=== PATIENT | male | born 1965 | race Caucasian/White ===

== ENCOUNTER 2016-06-24 04:05 | Emergency (ER) | payer SELFPAY ==
--- NOTE | 2016-06-24 04:54 | ED Physician Chart ---
Chief Complaint/HPI - Patient Information Date Seen:: 06/24/16 Time Seen:: 04:26 Chief Complaint:: SORE ON THE PENIS History of Present Illness:: THIS IS A 50 YEAR OLD MALE WHO IS ACTIVE SEXUALLY IS CONCERNED ABOUT A SORE ON HIS PENIS. THE LAST SEXUAL ENCOUNTER WAS FOUR DAYS AGO. HE DENIES A PENILE DISCHARGE AND HEMATURIA. HE DENIES HAVING ANY PREVIOUS SEX DISEASES. HE DENIES ALL OTHER SYMPTOMS. Allergies:: Allergies Allergy/AdvReac Type Severity Reaction Status Date / Time No Known Allergies Allergy Verified 11/28/15 09:09 Vitals:: Vital Signs - 8 hr 06/24/16 04:20 Temp 98.7 F HR 99 RR 19 BP 129/91 O2 Sat % 97 Historian:: Patient Review:: Nurse's Note Reviewed Review of Systems - Review of Systems General/Constitutional: No fever, No chills, No weight loss, No weakness, No diaphoresis, No edema, No loss of appetite Skin: No skin lesions, No rash, No bruising Head: No headache, No light-headedness Eyes: No loss of vision, No pain, No diplopia ENT: No earache, No nasal drainage, No sore throat, No tinnitus Neck: No neck pain, No swelling, No thyromegaly, No stiffness, No mass noted Cardio Vascular: No chest pain, No palpitations, No PND, No orthopnea, No edema Pulmonary: No SOB, No cough, No sputum, No wheezing GI: No nausea, No vomiting, No diarrhea, No pain, No melena, No hematochezia, No constipation, No hematemesis G/U: No dysuria, No frequency, No hematuria, Other (SORE ON THE PENIS) Musculoskeletal: No bone or joint pain, No back pain, No muscle pain Endocrine: No polyuria, No polydipsia Psychiatric: No prior psych history, No depression, No anxiety, No suicidal ideation Hematopoietic: No bruising, No lymphadenopathy Allergic/Immuno: No urticaria, No angioedema Neurological: No syncope, No focal symptoms, No weakness, No paresthesia, No headache, No seizure, No dizziness, No confusion, No vertigo Past Medical History - Past Medical History Obtainable: Yes Past Medical History: No significant medical hx Family History: None Social History: Non Smoker, No Alcohol, No Drug Use Surgical History: other (LEFT ANKLE) Family Medical History - Family Member Mother History Unknown: Yes Physical Exam - Physical Examination General/Constitutional: Awake, Well-developed, well-nourished, Alert, No distress, GCS 15, Non-toxic appearing, Ambulatory Head: Atraumatic Eyes: Lids, conjuctiva normal, PERRL, EOMI Skin: Nl inspection, No rash, No skin lesions, No ecchymosis, Well hydrated, No lymphadenopathy ENMT: External ears, nose nl, Nasal exam nl, Lips, teeth, gums nl Neck: Nontender, Full ROM w/o pain, No JVD, No nuchal rigidity, No bruit, No mass, No stridor Respiratory: Nl effort/Exclusion, Clear to Auscultation, No Wheeze/Rhonchi/Rales Cardio Vascular: RRR, No murmur, gallop, rubs, NL S1 S2 GI: No tenderness/rebounding/guarding, No organomegaly, No hernia, Normal BS's, Nondistended, No mass/bruits, No McBurney tenderness : No CVA tenderness, NL external genitalia, No discharge Other comments:: THERE IS AN ULCER LESION ON THE SHAFT OF THE PENIS AND THERE IS NO DISCHARGE. Extremities: No tenderness or effusion, Full ROM, normal strength in all extremities, No edema, Normal digits & nails Neuro/Psych: Alert/oriented, DTR's symmetric, Normal sensory exam, Normal motor strength, Judgement/insight normal, Mood normal, Normal gait, No focal deficits Misc: normal gait, Normal back, No paraspinal tenderness ED Septic Shock - . Is Septic Shock (SBP<90, OR Lactate>4 mmol\L) present?: No - <6hrs of presentation: Vital Signs: Vital Signs - 8 hr 06/24/16 04:20 Temp 98.7 F HR 99 RR 19 BP 129/91 O2 Sat % 97 Reassessment (Disposition) - Reassessment Reassessment Condition:: Unchanged - Diagnosis Diagnosis:: CANKER SORE ON PENIS SHAFT - Aftercare/Follow up Instructions Aftercare/Follow-Up Instructions:: Counseled pt regarding lab results/diagnosis & need follow up, Refer to Discharge Instructions, Counseled pt & family regarding lab results/diagnosis & need follow up - Patient Disposition Discharge/Transfer:: Home Condition at Disposition:: Unchanged ED Discharge Plan - Patient Disposition Admit/Discharge/Transfer: PT DISCHARGED HOME Condition at Disposition: Unchanged
== END 2016-06-24 05:00 | disposition home or self-care (01) ==
LOC: ER 04:05
DX: N48.89 Other specified disorders of penis (principal)
CPT/HCPCS: 99283; 96372; J0696; Z7502

== ENCOUNTER 2017-10-17 15:03 | Emergency (ER) | payer MEDICAID ==
--- NOTE | 2017-10-17 15:45 | ED Physician Chart ---
ED Chief Complaint/HPI - Patient Information Date Seen:: 10/17/17 Time Seen:: 15:39 Chief Complaint:: STINGING PAIN IN RT SIDE OF NECK THIS AM History of Present Illness:: PATIENT WAS SLEEPING IN A TENT IN THE [place] ON WHEN HE FELT A STINGING PAIN IN THE RIGHT SIDE OF HIS NECK. HE DID NOT SEE ANY INSECTS OR OTHER CRITTERS THAT MAY HAVE BEEN THE SOURCE. HE POURED HYDROGEN PEROXIDE ON IT AND THE PAIN BECAME WORSE. CURRENTLY HE RATES IT A 8/10 IN SEVERITY. PT DIDN'T SEE ANY UNUSUAL SOURCES OF HIS PAIN. NO ASSOCIATED NAUSEA, VOMITING OR DIAPHORESIS.THE PT SAYS HIS NECK HURTS AND IT LOOKS LIKE HE HAD A VESICULAR PATCH OF SKIN. HE DIDN'T SEE ANY FANG SILVA. HE DOESN'T SEE ANY SWELLING. PT USES Allergies:: Allergies Allergy/AdvReac Type Severity Reaction Status Date / Time No Known Allergies Allergy Verified 11/28/15 09:09 Historian:: Patient Review:: Nurse's Note Reviewed, No other information ED Review of Systems - Review of Systems General/Constitutional: No fever, No chills, No weakness, No diaphoresis, No edema, No loss of appetite Skin: Skin lesions, Rash, No bruising Head: No headache, No light-headedness Eyes: No loss of vision, No diplopia ENT: No earache, No nasal drainage, Sore throat, No tinnitus Neck: Neck pain, No swelling, No thyromegaly, No stiffness, No mass noted Cardio Vascular: No chest pain, No palpitations, No orthopnea, No edema Pulmonary: No SOB, No cough, No wheezing GI: No nausea, No vomiting, No diarrhea, No pain, No melena, No hematochezia, No constipation, No hematemesis G/U: No dysuria, No frequency, No 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 Musculoskeletal: No bone or joint pain, No back pain, No muscle pain Endocrine: No polyuria, No polydipsia Psychiatric: No prior psych history, No anxiety, No suicidal ideation, No auditory hallucination, No visual hallucination Hematopoietic: No bruising, No lymphadenopathy Allergic/Immuno: No urticaria, Angioedema, No angioedema Neurological: No syncope, No focal symptoms, No weakness, No headache, No seizure, No dizziness, No confusion, No vertigo ED Past Medical History - Past Medical History Past Medical History: No significant medical hx Social History: Non Smoker, No Alcohol, Illicit Drug Use, Single, Lives Alone Employment:: [employer] Surgical History: other (PRIOR ANKLE SURG) Family Medical History - Family Member Mother History Unknown: Yes ED Physical Exam - Physical Examination General/Constitutional: Awake, Well-developed, well-nourished, Alert, Non-toxic appearing, Ambulatory Other Gen/Cons comments:: NILD T0 MODERATE DIASTRESS DUE TO HIS C/OPAIN Pt. PT LOUD AND DEMANDING. UNKEPG. Head: Atraumatic Eyes: Lids, conjuctiva normal, PERRL, EOMI Skin: No rash, Well hydrated Other Skin comments:: MILD SKIN BURN. Respiratory: Nl effort/Exclusion, Clear to Auscultation, No Wheeze/Rhonchi/Rales Cardio Vascular: RRR, No murmur, gallop, rubs, NL S1 S2 Other Cardio Vascular comments:: GOOD PULSES IN ALL 4 EXTREMITIES ED Assessment - Assessment General Assessment: MDM DDX SUDDEN ON SET STING IN NECK: NOT BEE STING BASED ON NO STINGER. NOT RATTLESNAKE BITE BASED ON LACK OF SAYING IMPRINTS NOT NEEDLE STICK BASED ON THE PATIENT'S HISTORY. Excludes all billable procedures: No This condition life threatening/high prob of deterioration: No ED Septic Shock - . Is Septic Shock (SBP<90, OR Lactate>4 mmol\L) present?: No ED Reassessment (Disposition) - Reassessment Reassessment Condition:: Improved - Diagnosis Diagnosis:: PROBABLE INSECT OR SPIDER BITE ED Discharge Plan - Patient Disposition Admit/Discharge/Transfer: PT DISCHARGED HOME Condition at Disposition: Stable Instructions: Insect Bite, [id number] Additional Instructions: Pls follow up with PCP in 1-2 days. Return to ER if symptoms worsen.
[2017-10-17 16:51] LABS: % BASOPHILS 0.6 % (0.0-2.0); % EOSINOPHILS 3.6 % (0.0-5.0); % LYMPHOCYTES 25.1 % (20.0-50.0); % MONOCYTES 7.9 % (2.0-10.0); % NEUTROPHILS 62.8 % (40.0-80.0); EOSINOPHILE ABSOLUTE 0.2 Th/cmm (0.1-0.4); HEMATOCRIT 41.4 % (41.0-60); HEMOGLOBIN 14.1 gm/dL (12-16); LYMPHOCYTE ABSOLUTE 1.7 Th/cmm (1.5-3.0); MEAN CELL VOLUME 85.9 fl (80-99); MEAN CORPUSCULAR HEMOGLOBIN 29.1 pg (26.0-30.0); MEAN CORPUSCULAR HGB CONC 33.9 pg (28.0-36.0); MEAN PLATELET VOLUME 7.8 fl; MONOCYTE ABSOLUTE 0.5 Th/cmm (0.3-1.0); NEUTROPHILE ABSOLUTE 4.5 Th/cmm (1.8-8.0); PLATELET COUNT 217 Th/cmm (150-400); RED BLOOD COUNT 4.82 Mil/cmm (4.30-5.70); RED CELL DISTRIBUTION WIDTH 12.5 % (11.5-20.0); WHITE BLOOD COUNT 6.9 Th/cmm (4.8-10.8)
[2017-10-17 17:17] LABS: ALB/GLOB RATIO 1.7 (1.0-1.8); ALBUMIN 4.3 gm/dL (4.2-5.5); ALKALINE PHOSPHATASE 80 U/L (34-104); ANION GAP 8.2 (7.0-16.0); BILIRUBIN,TOTAL 0.8 mg/dL (0.3-1.0); BUN - UREA NITROGEN 24 mg/dL (7-25); CALCIUM SERUM 9.7 mg/dL (8.6-10.3); CARBON DIOXIDE 29.6 mEq/L (21.0-31.0); CHLORIDE 105 mEq/L (98-107); CREATININE - SERUM 1.5 mg/dL (0.7-1.3); GFR AFRICAN-AMERICAN > 60.0 ml/min (>90); GFR NON AFRICAN-AMERICAN 52.9 ml/min; GLUCOSE 109 mg/dL (70-105); POTASSIUM SERUM 4.8 mEq/L (3.5-5.1); SGOT 27 U/L (13-39); SGPT/ALT 30 U/L (7-52); SODIUM SERUM 138 mEq/L (136-145); TOTAL PROTEIN,SERUM 6.8 gm/dL (6.0-8.3)
== END 2017-10-17 17:30 | disposition home or self-care (01) ==
LOC: ER 15:03
DX: M54.2 Cervicalgia (principal)
CPT/HCPCS: 36415-UA; 80053-TC; 85025-TC; Z7502

== ENCOUNTER 2018-04-02 00:58 | Inpatient (IN) | payer SELFPAY ==
[2018-04-02] MEDS ORDERED: Albuterol/Ipratropium Neb 3 ML AERS HHN ONE ×3 (01:38→11:18)
--- NOTE | 2018-04-02 01:43 | ED Physician Chart ---
ED Chief Complaint/HPI - Patient Information Date Seen:: 04/02/18 Time Seen:: 01:30 Chief Complaint:: shortness of breath History of Present Illness:: Patient's had shortness of breath the last 2 weeks increased with mild exertion in the supine position. No recent cough. No chest pain. 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 Patient has not seen a physician in several years. Allergies:: Allergies Allergy/AdvReac Type Severity Reaction Status Date / Time No Known Allergies Allergy Verified 10/17/17 15:43 Historian:: Patient Review:: Nurse's Note Reviewed ED Review of Systems - Review of Systems General/Constitutional: No fever, No chills Skin: No skin lesions Head: No headache Eyes: No loss of vision ENT: No earache Neck: No neck pain, No swelling Cardio Vascular: No chest pain Pulmonary: SOB GI: No nausea, No vomiting, No diarrhea G/U: No dysuria Musculoskeletal: No bone or joint pain Endocrine: No polyuria Psychiatric: No prior psych history, No depression, No anxiety Hematopoietic: No bruising Allergic/Immuno: No urticaria Neurological: No syncope, No focal symptoms ED Past Medical History - Past Medical History Past Medical History: No significant medical hx Family History: None Social History: Smoker, No Alcohol, Other (smokes one pack of cigarettes a day) Surgical History: other (left ankle) Psychiatricy History: None Medication: None Family Medical History - Family Member Mother History Unknown: Yes ED Physical Exam - Physical Examination General/Constitutional: Well-developed, well-nourished, Alert Other Gen/Cons comments:: Mildly tachypneic Head: Atraumatic Eyes: Lids, conjuctiva normal, PERRL Skin: Nl inspection, No rash ENMT: External ears, nose nl, TM canals nl, Nasal exam nl Neck: No nuchal rigidity Other Respiratory comments:: Left sided expiratory wheezing and bibasilar rales Cardio Vascular: RRR, No murmur, gallop, rubs, NL S1 S2 GI: No tenderness/rebounding/guarding, No organomegaly, No hernia, Normal BS's : No CVA tenderness Extremities: Normal digits & nails Neuro/Psych: No focal deficits Misc: Normal back ED Labs/Radiology/EKG Results - Lab Results Results: Abnormal Lab Results 04/02/18 04/02/1804/02/18 01:50 01:50 01:50 WBC 9.5 RBC 4.95 Hgb 14.6 Hct 43.5 MCV 87.9 MCH 29.4 MCHC Differential 33.4 RDW 12.1 Plt Count 211 MPV 8.3 Neutrophils % 70.8 Lymphocytes % 19.6 L Monocytes % 7.5 Eosinophils % 1.8 Basophils % 0.3 Sodium 138 Potassium 4.2 Chloride 107 Carbon Dioxide 23.5 Anion Gap 11.7 BUN 23 Creatinine 1.3 Est GFR ( Amer) > 60.0 Est GFR (Non-Af Amer) > 60.0 BUN/Creatinine Ratio 17.7 Glucose 102 Calcium 8.9 Magnesium 2.1 Troponin I B-Natriuretic Peptide 759.0 H 04/02/18 01:50 WBC RBC Hgb Hct MCV MCH MCHC Differential RDW Plt Count MPV Neutrophils % Lymphocytes % Monocytes % Eosinophils % Basophils % Sodium Potassium Chloride Carbon Dioxide Anion Gap BUN Creatinine Est GFR ( Amer) Est GFR (Non-Af Amer) BUN/Creatinine Ratio Glucose Calcium Magnesium Troponin I 0.07 H* B-Natriuretic Peptide - Radiology Results Results: Chest x-ray showed marked cardiomegaly - EKG Interpretations Rate & Rhythm: sinus tachycardia; ventricular trigeminy; heart rate 111 [place]: borderline left axis deviation Comments:: Left ventricular hypertrophy ED Septic Shock - . Is Septic Shock (SBP<90, OR Lactate>4 mmol\L) present?: No ED Reassessment (Disposition) - Reassessment Reassessment:: Patient felt improved after the breathing treatment with albuterol and Atrovent Reassessment Condition:: Unchanged - Diagnosis Diagnosis:: Cardiomegaly; probable congestive heart failure; nicotine crystal meth use - Patient Disposition Admitted to:: Telemetry Spoke to:: Surendra Mcdonald Admitting Medical Physician:: Surendra Mcdonald Condition at Disposition:: Stable, Improved
[2018-04-02 01:59] LABS: % BASOPHILS 0.3 % (0.0-2.0); % EOSINOPHILS 1.8 % (0.0-5.0); % LYMPHOCYTES 19.6 % (20.0-50.0); % MONOCYTES 7.5 % (2.0-10.0); % NEUTROPHILS 70.8 % (40.0-80.0); EOSINOPHILE ABSOLUTE 0.2 Th/cmm (0.1-0.4); HEMATOCRIT 43.5 % (41.0-60); HEMOGLOBIN 14.6 gm/dL (12-16); LYMPHOCYTE ABSOLUTE 1.9 Th/cmm (1.5-3.0); MEAN CELL VOLUME 87.9 fl (80-99); MEAN CORPUSCULAR HEMOGLOBIN 29.4 pg (26.0-30.0); MEAN CORPUSCULAR HGB CONC 33.4 pg (28.0-36.0); MEAN PLATELET VOLUME 8.3 fl; MONOCYTE ABSOLUTE 0.7 Th/cmm (0.3-1.0); NEUTROPHILE ABSOLUTE 6.7 Th/cmm (1.8-8.0); PLATELET COUNT 211 Th/cmm (150-400); RED BLOOD COUNT 4.95 Mil/cmm (4.30-5.70); RED CELL DISTRIBUTION WIDTH 12.1 % (11.5-20.0); WHITE BLOOD COUNT 9.5 Th/cmm (4.8-10.8)
[2018-04-02 02:13] LABS: ANION GAP 11.7 (7.0-16.0); BUN - UREA NITROGEN 23 mg/dL (7-25); CALCIUM SERUM 8.9 mg/dL (8.6-10.3); CARBON DIOXIDE 23.5 mEq/L (21.0-31.0); CHLORIDE 107 mEq/L (98-107); CREATININE - SERUM 1.3 mg/dL (0.7-1.3); GFR AFRICAN-AMERICAN > 60.0 ml/min (>90); GFR NON AFRICAN-AMERICAN > 60.0 ml/min; GLUCOSE 102 mg/dL (70-105); MAGNESIUM 2.1 mg/dL (1.9-2.7); POTASSIUM SERUM 4.2 mEq/L (3.5-5.1); SODIUM SERUM 138 mEq/L (136-145)
[2018-04-02] MEDS ORDERED: Morphine Sulfate 4 mg/mL 1mL Syr IVP STA (04:47)
[2018-04-02] MEDS ORDERED: Morphine Sulfate 4 mg/mL 1mL Syr ONE (04:50)
--- NOTE | 2018-04-02 08:40 | History and Physical ---
History of Present Illness - HPI Chief Complaint: SOB HPI: 52 y/o male who presents to [facility] ER for increasing shortness of breath for the past 2 weeks with mild exertion. Patient denies recent coughing, Denies chest pain. He has a history of drug abuse(crystal meth) for the past 20 years. Patient has no previous medical history. Initial labwork revealed the following... WBC 9.5 H/H 14.6/43.5 plat 211k Na 138 K 4.2 Bun/Cr 23/1.3 glu 102 BNP elevated 759 trop I 0.07 Chest Xray revealed cardiomegaly. Patient was subsequently admitted for further evaluation and treatment. 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 Hx GI: Report: No Pertinent Hx Psych: Report: No Pertinent Hx Musculoskeletal: Report: No Pertinent Hx Rheumatologic: Report: No pertinent Hx Infectious Disease: Report: No Pertinent Hx Renal/: Report: No Pertinent Hx Endocrine: Report: No Pertinent Hx Dermatology: Report: No Pertinent Hx - Past Surgical History Past Surgical History: No pertinent Hx Family Medical History - Family Member Mother History Unknown: Yes Social History Smoke: No Alcohol: None Drugs: Crystal Meth Lives: Alone - Medications Home Medications: Home Medication Medication Instructions Recorded Type NK [No Home Meds] 10/17/17 History - Allergies Allergies/Adverse Reactions: Allergies Allergy/AdvReac Type Severity Reaction Status Date / Time No Known Allergies Allergy Verified 10/17/17 15:43 Review of Systems - Review of Systems Constitutional: Report: No Significant Eyes: Report: No Significant ENT: Report: No Significant Respiratory: Report: SOB with Excertion. Denies: Cough Cardiovascular: Denies: Chest Pain Gastrointestinal: Report: No Significant Genitourinary: Report: No Significant Musculoskeletal: Report: No Significant Skin: Report: No Significant Neurological: Report: No Significant Physical Exam - Physical Exam HEENT: Report: Ears Nose Throat within normal limits Neck: Report: Within normal limits Cardiovascular Systems: Report: +s1/s2 noted, Regular, Rate and Rhythm Respiratory: Report: Breath Sounds are within normal limits Abdomen: Report: Non-tender to palpation, Tender to palpation Back: Report: Inspection of back is within normal limits. Extremities: Report: Non-tender to palpation. Skin: Report: Color of skin is within normal limits Neuro/Psych: Report: Mood affect is within normal limits - Lab Results All Lab Results last 24 hours: Laboratory Results - last 24 hr 04/02/18 04/02/18 04/02/18 01:50 01:50 01:50 WBC 9.5 RBC 4.95 Hgb 14.6 Hct 43.5 MCV 87.9 MCH 29.4 MCHC Differential 33.4 RDW 12.1 Plt Count 211 MPV 8.3 Neutrophils % 70.8 Lymphocytes % 19.6 L Monocytes % 7.5 Eosinophils % 1.8 Basophils % 0.3 Sodium 138 Potassium 4.2 Chloride 107 Carbon Dioxide 23.5 Anion Gap 11.7 BUN 23 Creatinine 1.3 Est GFR ( Amer) > 60.0 Est GFR (Non-Af Amer) > 60.0 BUN/Creatinine Ratio 17.7 Glucose 102 Calcium 8.9 Magnesium 2.1 Troponin I B-Natriuretic Peptide 759.0 H 04/02/18 01:50 WBC RBC Hgb Hct MCV MCH MCHC Differential RDW Plt Count MPV Neutrophils % Lymphocytes % Monocytes % Eosinophils % Basophils % Sodium Potassium Chloride Carbon Dioxide Anion Gap BUN Creatinine Est GFR ( Amer) Est GFR (Non-Af Amer) BUN/Creatinine Ratio Glucose Calcium Magnesium Troponin I 0.07 H* B-Natriuretic Peptide - Assessment Assessment: SOB r/o CHF with elevated BNP elevated trop hx crystal meth Cardiomegaly on chest xray - Plan Plan: admit to telemetry repeat trop q8 repeat bnp tomorrow TSH,lipid profile cardio consult pulmonary consult repeat chest xray tomorrow
--- NOTE | 2018-04-02 08:51 | Diagnostic Imaging Report ---
CHEST X-RAY: AP view INDICATION: Shortness of breath COMPARISON: None FINDINGS: Mild increased interstitial lung markings are noted. There wall thickening infiltrate right perihilar region cannot be excluded. No focal consolidation or effusions. Cardiomegaly is noted. Osseous structures are intact. IMPRESSION: Mild increased interstitial lung markings. A marginal degree of congestion cannot be excluded. Developing right perihilar infiltrates can also not be excluded. Clinical correlation is recommended Cardiomegaly.
[2018-04-02 10:14] LABS: CHOLESTEROL 109 mg/dL (<200); HDL -HIGH DENSITY LIPOPROTEIN 31 mg/dL (23-92); TRIGLYCERIDES 97 mg/dL (<150)
[2018-04-02] MEDS ORDERED: Aspirin 81mg Chewable Tab PO SCH (11:00)
[2018-04-02] MEDS ORDERED: Albuterol Nebulizer 2.5mg/3mL HHN PRN (11:15)
[2018-04-02] MEDS ORDERED: Albuterol/Ipratropium Neb 3 ML AERS HHN SCH ×2 (11:15→11:45)
--- NOTE | 2018-04-02 23:17 | Consultation ---
DATE OF CONSULTATION: 04/02/[address] Surendra Mcdonald. HISTORY OF PRESENT ILLNESS: This is a 52-year-old male patient who has been complaining of shortness of breath of period of 2 days. No history of PND, orthopnea. The patient has a known history of substance abuse with methamphetamine. PHYSICAL EXAMINATION: VITAL SIGNS: Blood pressure 120/80, pulse 100, and respirations 28. HEAD: Normocephalic. No lumps or bumps. EYES: Pupils equal, reactive to light. Fundi show AV nicking, sclerae white, conjunctivae pink. NECK: Carotid 2+. Normal upstroke. JVD flat. Thyroid not palpable. Lymph nodes not palpable. CHEST: Shows increased AP diameter. No kyphosis, scoliosis. LUNGS: Bilateral rales. Decreased breath sounds both the bases. HEART: PMI sixth intercostal space with lateral to midclavicular line. S1, S2, S3, S4, soft systolic murmur. ABDOMEN: Soft. Liver and spleen not palpable. No organomegaly. Bowel sounds active. NEUROLOGIC: Unremarkable. EXTREMITIES: Peripheral pulses 2+. No pedal edema. CLINICAL IMPRESSION: 1. Congestive heart failure, most likely systolic dysfunction. 2. Methamphetamine. PLAN: At the present time, we will give Lasix. Get echocardiogram and give one dose of Xanax for anxiety. JOB# [id number]
--- NOTE | 2018-04-03 15:21 | Consultation ---
DATE OF CONSULTATION: 04/02/2018 REFERRING PHYSICIAN: Dr. Mcdonald. Thank you very much for this consultation. HISTORY OF PRESENT ILLNESS: This is a 52-year-old male who has been complaining of increasing shortness of breath and congestion for the last couple of days. The patient apparently is in his sixth year of smoking, methamphetamine use, remote history of alcohol use. The patient was found to have a very low ejection fraction, cardiomyopathy. He has responded to the diuresis and nebulized treatment. He is feeling much better. PAST MEDICAL HISTORY: As above. SOCIAL HISTORY: As above. PHYSICAL EXAMINATION: GENERAL: The patient is awake, alert, feeling much better, not in acute distress. VITAL SIGNS: Temperature 99.2, pulse 130, respirations 16, blood pressure 104/71, saturation 98%. HEENT: Atraumatic, normocephalic. Pupils equal and reactive to light and accommodation. Ears, nose and throat normal. RESPIRATORY: Chest: There are good breath sounds bilaterally. No wheezing or crackles. HEART: Regular rate and rhythm. ABDOMEN: Soft. EXTREMITIES: No edema. LABORATORY AND DIAGNOSTIC DATA: BNP 759. Troponin 0.07. Chest x-ray: No acute infiltrate. IMPRESSION: This is a 52-year-old male with: 1. Congestive heart failure, cardiomyopathy. 2. Possible underlying chronic obstructive pulmonary disease, many years of smoking. PLAN: 1. Continue diuresis. 2. Nebulizer treatment. 3. Discharge planning per Cardiology. 4. The patient was advised against smoking and drug usage. Thank you very much. I will follow the patient with you. [facility]# [id number]
== END 2018-04-02 18:40 | disposition left against medical advice (07) | DRG 293 ==
LOC: ER 00:58 → TELE 04:06
PROVIDERS: ADMIT Family Medicine; ATTEND Family Medicine
DX: I50.9 Heart failure, unspecified (principal); I42.9 Cardiomyopathy, unspecified; F17.210 Nicotine dependence, cigarettes, uncomplicated; F15.10 Other stimulant abuse, uncomplicated; I51.7 Cardiomegaly; Z53.21 Procedure and treatment not carried out due to patient leaving prior to being seen by health care provider; J44.9 Chronic obstructive pulmonary disease, unspecified; F41.9 Anxiety disorder, unspecified
CPT/HCPCS: 36415-UA; 71045-TC; 80048-TC; 80061-TC; 83735-TC; 83880-TC; 84443-TC; 84484-TC; 85025-TC; 93005; 94640; 94760; J1940; Z7610

== ENCOUNTER 2018-11-06 12:34 | Inpatient (IN) | payer MEDICAID ==
--- NOTE | 2018-11-06 13:15 | ED Physician Chart ---
ED Chief Complaint/HPI - Patient Information Date Seen:: 11/06/18 Time Seen:: 13:09 Chief Complaint:: back pain History of Present Illness:: this is a 52 yo male is concerned about his left lower back pain. the patient denies recent lifting and trauma. he denies renal stones but admits to heart failure. he smokes and uses methamphetamine. Allergies:: Allergies Allergy/AdvReac Type Severity Reaction Status Date / Time No Known Allergies Allergy Verified 10/17/17 15:43 Historian:: Patient Review:: Nurse's Note Reviewed, Old Chart Reviewed ED Review of Systems - Review of Systems General/Constitutional: No fever, No chills, No weight loss, No weakness, No diaphoresis, No edema, No loss of appetite Skin: No skin lesions, No rash, No bruising Head: No headache, No light-headedness Eyes: No loss of vision, No pain, No diplopia ENT: No earache, No nasal drainage, No sore throat, No tinnitus Neck: No neck pain, No swelling, No thyromegaly, No stiffness, No mass noted Cardio Vascular: No chest pain, No palpitations, No PND, No orthopnea, No edema Pulmonary: No SOB, No cough, No sputum, No wheezing GI: No nausea, No vomiting, No diarrhea, No pain, No melena, No hematochezia, No constipation, No hematemesis G/U: No dysuria, No frequency, No hematuria Musculoskeletal: No bone or joint pain, Back pain, No muscle pain Endocrine: No polyuria, No polydipsia Psychiatric: No prior psych history, No depression, No anxiety, No suicidal ideation Hematopoietic: No bruising, No lymphadenopathy Allergic/Immuno: No urticaria, No angioedema Neurological: No syncope, No focal symptoms, No weakness, No paresthesia, No headache, No seizure, No dizziness, No confusion, No vertigo ED Past Medical History - Past Medical History Obtainable: Yes Past Medical History: CHF Family History: None Social History: Smoker, No Alcohol, Illicit Drug Use, Surgical History: other (left ankle) Psychiatricy History: None Medication: Reviewed Family Medical History - Family Member Mother History Unknown: Yes Ethnicity: Non- Living Status: Hx Family Cancer: No Hx Family Coronary Artery Disease: No Hx Family Congestive Heart Failure: No Hx Family Hypertension: No Hx Family Stroke: Yes Hx Family Diabetes: No Hx Family Seizures: No Hx Family Dementia: No Hx Family AIDS: No Hx Family HIV: No Hx Family COPD: Yes Hx Family Hepatitis: No Hx Family Psychiatric Problems: No Hx Family Tuberculosis: No Father Ethnicity: Non- Living Status: Still Living Hx Family Cancer: No Hx Family Coronary Artery Disease: No Hx Family Congestive Heart Failure: No Hx Family Hypertension: No Hx Family Stroke: No Hx Family Diabetes: No Hx Family Seizures: No Hx Family Dementia: No Hx Family AIDS: No Hx Family HIV: No Hx Family COPD: No Hx Family Hepatitis: No Hx Family Psychiatric Problems: No Hx Family Tuberculosis: No Brother History Unknown: Yes Ethnicity: Non- Living Status: Still Living Hx Family Hepatitis: Yes ED Physical Exam - Physical Examination General/Constitutional: Awake, Well-developed, well-nourished, Alert, No distress, GCS 15, Non-toxic appearing, Ambulatory Head: Atraumatic Eyes: Lids, conjuctiva normal, PERRL, EOMI Skin: Nl inspection, No rash, No skin lesions, No ecchymosis, Well hydrated, No lymphadenopathy ENMT: External ears, nose nl, Nasal exam nl, Lips, teeth, gums nl Neck: Nontender, Full ROM w/o pain, No JVD, No nuchal rigidity, No bruit, No mass, No stridor Respiratory: Nl effort/Exclusion, Clear to Auscultation, No Wheeze/Rhonchi/Rales Cardio Vascular: RRR, No murmur, gallop, rubs, NL S1 S2 GI: No tenderness/rebounding/guarding, No organomegaly, No hernia, Normal BS's, Nondistended, No mass/bruits, No McBurney tenderness : No CVA tenderness Extremities: No tenderness or effusion, Full ROM, normal strength in all extremities, No edema, Normal digits & nails Neuro/Psych: Alert/oriented, DTR's symmetric, Normal sensory exam, Normal motor strength, Judgement/insight normal, Mood normal, Normal gait, No focal deficits Misc: Normal back, No paraspinal tenderness (left side lower back tenderness) ED Labs/Radiology/EKG Results - Lab Results Results: Abnormal Lab Results 11/06/18 11/06/18 11/06/18 13:10 13:10 13:10 WBC RBC Hgb Hct MCV MCH MCHC Differential RDW Plt Count MPV Add Manual Diff Neutrophils (Manual) Lymphocytes Monocytes Eosinophils PT 11.4 INR 1.11 PTT (Actin FS) 32.6 Sodium 134 L Potassium 3.9 Chloride 101 Carbon Dioxide 25.9 Anion Gap 11.0 BUN 20 Creatinine 1.2 Est GFR ( Amer) > 60.0 Est GFR (Non-Af Amer) > 60.0 BUN/Creatinine Ratio 16.7 Glucose 94 Calcium 9.1 Total Bilirubin 0.5 AST 16 ALT 13 Alkaline Phosphatase 70 Troponin I B-Natriuretic Peptide Total Protein 6.9 Albumin 4.1 L Globulin 2.8 Albumin/Globulin Ratio 1.5 Triglycerides 57 Cholesterol 158 LDL Cholesterol Direct 119 HDL Cholesterol 34 Urine Source Urine Color Urine Clarity Urine pH Ur Specific [place] Urine Protein Urine Glucose (UA) Urine Ketones Urine Blood Urine Nitrate Urine Bilirubin Urine Urobilinogen Ur Leukocyte Esterase Urine RBC Urine WBC Ur Epithelial Cells Urine Bacteria Fine Granular Casts Urine Mucus Urine Opiates Screen Urine Methadone Screen Ur Barbiturates Screen Ur Tricyclics Screen Ur Phencyclidine Scrn Amphetamines Screen U Methamphetamines Scrn U Benzodiazepines Scrn U Cocaine Metab Screen U Cannabinoids Screen 11/06/18 11/06/18 11/06/18 13:10 13:10 13:10 WBC 5.3 RBC 5.22 Hgb 15.4 Hct 47.3 MCV 90.7 MCH 29.6 MCHC Differential 32.6 RDW 11.6 Plt Count 201 MPV 7.7 Add Manual Diff YES Neutrophils (Manual) 38 L Lymphocytes 40 Monocytes 16 H Eosinophils 6 H PT INR PTT (Actin FS) Sodium Potassium Chloride Carbon Dioxide Anion Gap BUN Creatinine Est GFR ( Amer) Est GFR (Non-Af Amer) BUN/Creatinine Ratio Glucose Calcium Total Bilirubin AST ALT Alkaline Phosphatase Troponin I 0.08 H* B-Natriuretic Peptide 463.0 H Total Protein Albumin Globulin Albumin/Globulin Ratio Triglycerides Cholesterol LDL Cholesterol Direct HDL Cholesterol Urine Source Urine Color Urine Clarity Urine pH Ur Specific [place] Urine Protein Urine Glucose (UA) Urine Ketones Urine Blood Urine Nitrate Urine Bilirubin Urine Urobilinogen Ur Leukocyte Esterase Urine RBC Urine WBC Ur Epithelial Cells Urine Bacteria Fine Granular Casts Urine Mucus Urine Opiates Screen Urine Methadone Screen Ur Barbiturates Screen Ur Tricyclics Screen Ur Phencyclidine Scrn Amphetamines Screen U Methamphetamines Scrn U Benzodiazepines Scrn U Cocaine Metab Screen U Cannabinoids Screen 11/06/18 11/06/18 14:00 14:00 WBC RBC Hgb Hct MCV MCH MCHC Differential RDW Plt Count MPV Add Manual Diff Neutrophils (Manual) Lymphocytes Monocytes Eosinophils PT INR PTT (Actin FS) Sodium Potassium Chloride Carbon Dioxide Anion Gap BUN Creatinine Est GFR ( Amer) Est GFR (Non-Af Amer) BUN/Creatinine Ratio Glucose Calcium Total Bilirubin AST ALT Alkaline Phosphatase Troponin I B-Natriuretic Peptide Total Protein Albumin Globulin Albumin/Globulin Ratio Triglycerides Cholesterol LDL Cholesterol Direct HDL Cholesterol Urine Source [place] Urine Color YELLOW Urine Clarity CLEAR Urine pH 5.5 Ur Specific [place] 1.025 Urine Protein NEGATIVE Urine Glucose (UA) NEGATIVE Urine Ketones NEGATIVE Urine Blood NEGATIVE Urine Nitrate NEGATIVE Urine Bilirubin NEGATIVE Urine Urobilinogen 0.2 Ur Leukocyte Esterase NEGATIVE Urine RBC 0-2 H Urine WBC 2-5 Ur Epithelial Cells OCCASIONAL Urine Bacteria FEW Fine Granular Casts 0-2 H Urine Mucus FEW Urine Opiates Screen NEGATIVE Urine Methadone Screen NEGATIVE Ur Barbiturates Screen NEGATIVE Ur Tricyclics Screen NEGATIVE Ur Phencyclidine Scrn NEGATIVE Amphetamines Screen POSITIVE H U Methamphetamines Scrn POSITIVE H U Benzodiazepines Scrn NEGATIVE U Cocaine Metab Screen NEGATIVE U Cannabinoids Screen POSITIVE H - Radiology Results Results: chest x-ray= cm lumboscaral spine = spondylolithesis L5 ON S1 - EKG Interpretations EKG Time:: 13:09 ([address]) Rate & Rhythm: rate = 86, sinus [place]: left ED Assessment - Assessment General Assessment: back pain ED Septic Shock - . Is Septic Shock (SBP<90, OR Lactate>4 mmol\L) present?: No ED Reassessment (Disposition) - Reassessment Reassessment Condition:: Improved - Diagnosis Diagnosis:: chf elevated troponin spondylolithesis - Patient Disposition Discharge/Transfer:: Acute Care w/in this hosp Admitted to:: Telemetry Admitting Medical Physician:: Surendra Mcdonald Condition at Disposition:: Improved
[2018-11-06 13:23] LABS: HEMATOCRIT 47.3 % (41.0-60); HEMOGLOBIN 15.4 gm/dL (12-16); MEAN CELL VOLUME 90.7 fl (80-99); MEAN CORPUSCULAR HEMOGLOBIN 29.6 pg (26.0-30.0); MEAN CORPUSCULAR HGB CONC 32.6 pg (28.0-36.0); PLATELET COUNT 201 Th/cmm (150-400); RED BLOOD COUNT 5.22 Mil/cmm (4.30-5.70); RED CELL DISTRIBUTION WIDTH 11.6 % (11.5-20.0); WHITE BLOOD COUNT 5.3 Th/cmm (4.8-10.8)
[2018-11-06 13:36] LABS: INR 1.11 (0.5-1.4)
[2018-11-06 13:44] LABS: ALB/GLOB RATIO 1.5 (1.0-1.8); ALBUMIN 4.1 gm/dL (4.2-5.5); ALKALINE PHOSPHATASE 70 U/L (34-104); BILIRUBIN,TOTAL 0.5 mg/dL (0.3-1.0); BUN - UREA NITROGEN 20 mg/dL (7-25); CALCIUM SERUM 9.1 mg/dL (8.6-10.3); CARBON DIOXIDE 25.9 mEq/L (21.0-31.0); CHLORIDE 101 mEq/L (98-107); CHOLESTEROL 158 mg/dL (<200); CREATININE - SERUM 1.2 mg/dL (0.7-1.3); GFR AFRICAN-AMERICAN > 60.0 ml/min (>90); GFR NON AFRICAN-AMERICAN > 60.0 ml/min; GLUCOSE 94 mg/dL (70-105); HDL -HIGH DENSITY LIPOPROTEIN 34 mg/dL (23-92); POTASSIUM SERUM 3.9 mEq/L (3.5-5.1); SGOT 16 U/L (13-39); SGPT/ALT 13 U/L (7-52); SODIUM SERUM 134 mEq/L (136-145); TOTAL PROTEIN,SERUM 6.9 gm/dL (6.0-8.3); TRIGLYCERIDES 57 mg/dL (<150)
[2018-11-06 13:50] LABS: EOSINOPHIL 6 % (0-5); LYMPHOCYTE 40 % (20-50); MONOCYTE 16 % (2-10); NEUTROPHILS 38 % (40-80)
[2018-11-06 14:02] LABS: URINE SOURCE MIDSTREAM
[2018-11-06 14:08] LABS: URINE BILIRUBIN NEGATIVE (NEGATIVE); URINE BLOOD NEGATIVE (NEGATIVE); URINE GLUCOSE (UA) NEGATIVE (NEGATIVE); URINE KETONE NEGATIVE (NEGATIVE); URINE LEUKOCYTE ESTERASE NEGATIVE (NEGATIVE); URINE NITRATE NEGATIVE (NEGATIVE); URINE PH 5.5 (4.6 - 8.0); URINE PROTEIN NEGATIVE (NEGATIVE); URINE UROBILINOGEN 0.2 E.U./dL (0.2 - 1.0)
[2018-11-06 14:13] LABS: URINE CLARITY CLEAR (CLEAR); URINE COLOR YELLOW
[2018-11-06 14:14] LABS: URINE MICROSCOPIC INDICATED? YES
[2018-11-06] MEDS ORDERED: Sodium Chloride 0.45% 1,000 ML IV SCH (14:16)
[2018-11-06 14:27] LABS: URINE BACTERIA FEW /hpf (NONE SEEN); URINE EPITHELIAL CELLS OCCASIONAL /lpf (FEW); URINE RBC 0-2 /hpf (0-5)
[2018-11-06 14:28] LABS: URINE FINE GRANULAR CAST 0-2 /lpf (NONE SEEN)
[2018-11-06 14:29] LABS: AMPHETAMINE URINE POSITIVE (NEGATIVE); BARBITURATES URINE NEGATIVE (NEGATIVE); BENZODIAZEPINES QUAL URINE NEGATIVE (NEGATIVE); CANNABINOID THC POSITIVE (NEGATIVE); COCAINE METABOLITE QUAL URINE NEGATIVE (NEGATIVE); METHADONE URINE NEGATIVE (NEGATIVE); METHAMPHETAMINES QUAL URINE POSITIVE (NEGATIVE); OPIATES (MORPHINE) QUAL. URINE NEGATIVE (NEGATIVE); PHENCYCLIDINE (PCP) URINE NEGATIVE (NEGATIVE); TRICYCLICS (TCA) QUAL. URINE NEGATIVE (NEGATIVE)
[2018-11-06 16:48] VITALS: BP 105/72
[2018-11-06] MEDS ORDERED: D5-0.45NS 1,000 ML IV SCH (20:30)
[2018-11-07 06:46] LABS: % EOSINOPHILS 0.9 % (0.0-5.0); % MONOCYTES 10.2 % (2.0-10.0); % NEUTROPHILS 75.9 % (40.0-80.0); EOSINOPHILE ABSOLUTE 0.1 Th/cmm (0.1-0.4); HEMATOCRIT 42.4 % (41.0-60); HEMOGLOBIN 14.5 gm/dL (12-16); LYMPHOCYTE ABSOLUTE 0.9 Th/cmm (1.5-3.0); MEAN CELL VOLUME 89.7 fl (80-99); MEAN CORPUSCULAR HEMOGLOBIN 30.6 pg (26.0-30.0); MEAN CORPUSCULAR HGB CONC 34.1 pg (28.0-36.0); MONOCYTE ABSOLUTE 0.7 Th/cmm (0.3-1.0); PLATELET COUNT 186 Th/cmm (150-400); RED BLOOD COUNT 4.73 Mil/cmm (4.30-5.70); RED CELL DISTRIBUTION WIDTH 11.7 % (11.5-20.0); WHITE BLOOD COUNT 6.7 Th/cmm (4.8-10.8)
[2018-11-07 07:00] LABS: ALB/GLOB RATIO 1.5 (1.0-1.8); ALKALINE PHOSPHATASE 73 U/L (34-104); ANION GAP 12.3 (7.0-16.0); BILIRUBIN,TOTAL 0.5 mg/dL (0.3-1.0); BUN - UREA NITROGEN 26 mg/dL (7-25); CARBON DIOXIDE 23.1 mEq/L (21.0-31.0); CHLORIDE 101 mEq/L (98-107); CREATININE - SERUM 1.4 mg/dL (0.7-1.3); GFR AFRICAN-AMERICAN > 60.0 ml/min (>90); GLUCOSE 103 mg/dL (70-105); POTASSIUM SERUM 4.4 mEq/L (3.5-5.1); SGOT 17 U/L (13-39); SGPT/ALT 12 U/L (7-52); SODIUM SERUM 132 mEq/L (136-145); TOTAL PROTEIN,SERUM 6.6 gm/dL (6.0-8.3)
[2018-11-07] MEDS ORDERED: Hydrocodone/APAP 5mg/325mg Tab PO PRN (07:28)
[2018-11-07] MEDS ORDERED: Albuterol Nebulizer 2.5mg/3mL HHN PRN (07:29)
--- NOTE | 2018-11-07 07:37 | History and Physical ---
History of Present Illness - HPI Chief Complaint: eleavted troponins, CHF, Chest pain HPI: 52 y/o male who presents to [facility] ER for back pain. During the course of his initial evaluated patient was also found to have elevated troponin levels and elevated BNP with positive UDS . Patient has a previous history of substance abuse. Vital Signs: Last Vital Signs Temp 97.3 F 11/07/18 03:41 Pulse 130 11/07/18 06:59 Resp 18 11/07/18 06:59 BP 136/71 11/07/18 03:41 Pulse Ox 96 11/07/18 06:59 Past Medical History Cardiovascular: Report: CHF, Other (cardiomyopathy) Pulmonary: Report: Asthma [employer]: Report: No Pertinent Hx GI: Report: No Pertinent Hx Psych: Report: Anxiety Musculoskeletal: Report: No Pertinent Hx Rheumatologic: Report: No pertinent Hx Renal/: Report: No Pertinent Hx Endocrine: Report: No Pertinent Hx Dermatology: Report: No Pertinent Hx Family Medical History - Family Member Mother History Unknown: Yes Ethnicity: Non- Living Status: Hx Family Cancer: No Hx Family Coronary Artery Disease: No Hx Family Congestive Heart Failure: No Hx Family Hypertension: No Hx Family Stroke: Yes Hx Family Diabetes: No Hx Family Seizures: No Hx Family Dementia: No Hx Family AIDS: No Hx Family HIV: No Hx Family COPD: Yes Hx Family Hepatitis: No Hx Family Psychiatric Problems: No Hx Family Tuberculosis: No Father History Unknown: Yes Ethnicity: Non- Living Status: Still Living Hx Family Cancer: No Hx Family Coronary Artery Disease: No Hx Family Congestive Heart Failure: No Hx Family Hypertension: No Hx Family Stroke: No Hx Family Diabetes: No Hx Family Seizures: No Hx Family Dementia: No Hx Family AIDS: No Hx Family HIV: No Hx Family COPD: No Hx Family Hepatitis: No Hx Family Psychiatric Problems: No Hx Family Tuberculosis: No Brother History Unknown: Yes Ethnicity: Non- Living Status: Still Living Hx Family Hepatitis: Yes Social History Smoke: 1 pack per day Alcohol: None Drugs: Crystal Meth, Marijuana Lives: Homeless - Medications Home Medications: Home Medication Medication Instructions Recorded Type NK [No Home Meds] 10/17/17 History - Allergies Allergies/Adverse Reactions: Allergies Allergy/AdvReac Type Severity Reaction Status Date / Time No Known Allergies Allergy Verified 10/17/17 15:43 Review of Systems - Review of Systems Constitutional: Report: No Significant Eyes: Report: No Significant ENT: Report: No Significant Respiratory: Report: Shortness of Breath Cardiovascular: Report: Chest Pain, Palpitations Gastrointestinal: Report: No Significant Genitourinary: Report: No Significant Musculoskeletal: Report: No Significant Skin: Report: No Significant Neurological: Report: No Significant Physical Exam - Physical Exam HEENT: Report: Ears Nose Throat within normal limits, Pharnyx within normal limits Neck: Report: Within normal limits Cardiovascular Systems: Report: +s1/s2 noted, Tachycardia Respiratory: Report: Breath Sounds are within normal limits Abdomen: Report: Non-tender to palpation Back: Report: Inspection of back is within normal limits. Extremities: Report: Non-tender to palpation. Skin: Report: Color of skin is within normal limits Neuro/Psych: Report: Mood affect is within normal limits - Lab Results All Lab Results last 24 hours: Laboratory Results - last 24 hr 11/06/18 11/06/18 11/06/18 13:10 13:10 13:10 WBC RBC Hgb Hct MCV MCH MCHC Differential RDW Plt Count MPV Add Manual Diff Neutrophils % Lymphocytes % Monocytes % Eosinophils % Basophils % Neutrophils (Manual) Lymphocytes Monocytes Eosinophils PT 11.4 INR 1.11 PTT (Actin FS) 32.6 Sodium 134 L Potassium 3.9 Chloride 101 Carbon Dioxide 25.9 Anion Gap 11.0 BUN 20 Creatinine 1.2 Est GFR ( Amer) > 60.0 Est GFR (Non-Af Amer) > 60.0 BUN/Creatinine Ratio 16.7 Glucose 94 Calcium 9.1 Total Bilirubin 0.5 AST 16 ALT 13 Alkaline Phosphatase 70 Troponin I B-Natriuretic Peptide Total Protein 6.9 Albumin 4.1 L Globulin 2.8 Albumin/Globulin Ratio 1.5 Triglycerides 57 Cholesterol 158 LDL Cholesterol Direct 119 HDL Cholesterol 34 TSH Urine Source Urine Color Urine Clarity Urine pH Ur Specific [place] Urine Protein Urine Glucose (UA) Urine Ketones Urine Blood Urine Nitrate Urine Bilirubin Urine Urobilinogen Ur Leukocyte Esterase Urine RBC Urine WBC Ur Epithelial Cells Urine Bacteria Fine Granular Casts Urine Mucus Digoxin Urine Opiates Screen Urine Methadone Screen Ur Barbiturates Screen Ur Tricyclics Screen Ur Phencyclidine Scrn Amphetamines Screen U Methamphetamines Scrn U Benzodiazepines Scrn U Cocaine Metab Screen U Cannabinoids Screen RPR 11/06/18 11/06/18 11/06/18 13:10 13:10 13:10 WBC RBC Hgb Hct MCV MCH MCHC Differential RDW Plt Count MPV Add Manual Diff Neutrophils % Lymphocytes % Monocytes % Eosinophils % Basophils % Neutrophils (Manual) Lymphocytes Monocytes Eosinophils PT INR PTT (Actin FS) Sodium Potassium Chloride Carbon Dioxide Anion Gap BUN Creatinine Est GFR ( Amer) Est GFR (Non-Af Amer) BUN/Creatinine Ratio Glucose Calcium Total Bilirubin AST ALT Alkaline Phosphatase Troponin I 0.08 H* B-Natriuretic Peptide Total Protein Albumin Globulin Albumin/Globulin Ratio Triglycerides Cholesterol LDL Cholesterol Direct HDL Cholesterol TSH 1.19 Urine Source Urine Color Urine Clarity Urine pH Ur Specific [place] Urine Protein Urine Glucose (UA) Urine Ketones Urine Blood Urine Nitrate Urine Bilirubin Urine Urobilinogen Ur Leukocyte Esterase Urine RBC Urine WBC Ur Epithelial Cells Urine Bacteria Fine Granular Casts Urine Mucus [place] Urine Opiates Screen Urine Methadone Screen Ur Barbiturates Screen Ur Tricyclics Screen Ur Phencyclidine Scrn Amphetamines Screen U Methamphetamines Scrn U Benzodiazepines Scrn U Cocaine Metab Screen U Cannabinoids Screen RPR NONREACTIVE 11/06/18 11/06/18 11/06/18 13:10 13:10 13:10 WBC 5.3 RBC 5.22 Hgb 15.4 Hct 47.3 MCV 90.7 MCH 29.6 MCHC Differential 32.6 RDW 11.6 Plt Count 201 MPV 7.7 Add Manual Diff YES Neutrophils % Lymphocytes % Monocytes % Eosinophils % Basophils % Neutrophils (Manual) 38 L Lymphocytes 40 Monocytes 16 H Eosinophils 6 H PT INR PTT (Actin FS) Sodium Potassium Chloride Carbon Dioxide Anion Gap BUN Creatinine Est GFR ( Amer) Est GFR (Non-Af Amer) BUN/Creatinine Ratio Glucose Calcium Total Bilirubin AST ALT Alkaline Phosphatase Troponin I B-Natriuretic Peptide 463.0 H Total Protein Albumin Globulin Albumin/Globulin Ratio Triglycerides Cholesterol LDL Cholesterol Direct HDL Cholesterol TSH Urine Source Urine Color Urine Clarity Urine pH Ur Specific [place] Urine Protein Urine Glucose (UA) Urine Ketones Urine Blood Urine Nitrate Urine Bilirubin Urine Urobilinogen Ur Leukocyte Esterase Urine RBC Urine WBC Ur Epithelial Cells Urine Bacteria Fine Granular Casts Urine Mucus Digoxin 0.4 L Urine Opiates Screen Urine Methadone Screen Ur Barbiturates Screen Ur Tricyclics Screen Ur Phencyclidine Scrn Amphetamines Screen U Methamphetamines Scrn U Benzodiazepines Scrn U Cocaine Metab Screen U Cannabinoids Screen RPR 11/06/18 11/06/18 11/06/18 14:00 14:00 21:10 WBC RBC Hgb Hct MCV MCH MCHC Differential RDW Plt Count MPV Add Manual Diff Neutrophils % Lymphocytes % Monocytes % Eosinophils % Basophils % Neutrophils (Manual) Lymphocytes Monocytes Eosinophils PT INR PTT (Actin FS) Sodium Potassium Chloride Carbon Dioxide Anion Gap BUN Creatinine Est GFR ( Amer) Est GFR (Non-Af Amer) BUN/Creatinine Ratio Glucose Calcium Total Bilirubin AST ALT Alkaline Phosphatase Troponin I 0.08 H* B-Natriuretic Peptide Total Protein Albumin Globulin Albumin/Globulin Ratio Triglycerides Cholesterol LDL Cholesterol Direct HDL Cholesterol TSH Urine Source [place] Urine Color YELLOW Urine Clarity CLEAR Urine pH 5.5 Ur Specific [place] 1.025 Urine Protein NEGATIVE Urine Glucose (UA) NEGATIVE Urine Ketones NEGATIVE Urine Blood NEGATIVE Urine Nitrate NEGATIVE Urine Bilirubin NEGATIVE Urine Urobilinogen 0.2 Ur Leukocyte Esterase NEGATIVE Urine RBC 0-2 H Urine WBC 2-5 Ur Epithelial Cells OCCASIONAL Urine Bacteria FEW Fine Granular Casts 0-2 H Urine Mucus FEW Digoxin Urine Opiates Screen NEGATIVE Urine Methadone Screen NEGATIVE Ur Barbiturates Screen NEGATIVE Ur Tricyclics Screen NEGATIVE Ur Phencyclidine Scrn NEGATIVE Amphetamines Screen POSITIVE H U Methamphetamines Scrn POSITIVE H U Benzodiazepines Scrn NEGATIVE U Cocaine Metab Screen NEGATIVE U Cannabinoids Screen POSITIVE H RPR 11/07/18 11/07/18 11/07/18 06:15 06:25 06:25 WBC 6.7 RBC 4.73 Hgb 14.5 Hct 42.4 MCV 89.7 MCH 30.6 H MCHC Differential 34.1 RDW 11.7 Plt Count 186 MPV 8.1 Add Manual Diff Neutrophils % 75.9 Lymphocytes % 13.0 L Monocytes % 10.2 H Eosinophils % 0.9 Basophils % 0.0 Neutrophils (Manual) Lymphocytes Monocytes Eosinophils PT INR PTT (Actin FS) Sodium 132 L Potassium 4.4 Chloride 101 Carbon Dioxide 23.1 Anion Gap 12.3 BUN 26 H Creatinine 1.4 H Est GFR ( Amer) > 60.0 Est GFR (Non-Af Amer) 57.0 BUN/Creatinine Ratio 18.6 Glucose 103 Calcium 9.0 Total Bilirubin 0.5 AST 17 ALT 12 Alkaline Phosphatase 73 Troponin I 0.08 H* B-Natriuretic Peptide Total Protein 6.6 Albumin 4.0 L Globulin 2.6 Albumin/Globulin Ratio 1.5 Triglycerides Cholesterol LDL Cholesterol Direct HDL Cholesterol TSH Urine Source Urine Color Urine Clarity Urine pH Ur Specific [place] Urine Protein Urine Glucose (UA) Urine Ketones Urine Blood Urine Nitrate Urine Bilirubin Urine Urobilinogen Ur Leukocyte Esterase Urine RBC Urine WBC Ur Epithelial Cells Urine Bacteria Fine Granular Casts Urine Mucus Digoxin Urine Opiates Screen Urine Methadone Screen Ur Barbiturates Screen Ur Tricyclics Screen Ur Phencyclidine Scrn Amphetamines Screen U Methamphetamines Scrn U Benzodiazepines Scrn U Cocaine Metab Screen U Cannabinoids Screen RPR - Assessment Assessment: Chest pain r/o ACS cardiomyopathy EF 11% HTN IVDU UDS + elevated troponins Spondylolithesis - Plan Plan: cardiac consult serial troponin levels q8 ativan PO Chest xray breathing treatment psychiatric consult
[2018-11-07] MEDS ORDERED: Albuterol Nebulizer 2.5mg/3mL HHN ONE (07:40)
--- NOTE | 2018-11-07 10:25 | Diagnostic Imaging Report ---
Exam: Chest x-ray HISTORY: Congestion. Findings: Frontal examination of chest was reviewed the study compared to prior exam of 11/06/2018. The study demonstrates cardiomegaly with congestive heart failure changes bilaterally. The costophrenic angles are clear bony thorax intact. IMPRESSION: cardiomegaly, mild congestion.
--- NOTE | 2018-11-07 10:35 | Diagnostic Imaging Report ---
Exam: Lumbosacral spine. HISTORY: Low back pain Findings: Multiple views lumbar cervical spine reviewed. The study demonstrates a degenerative narrowing of L5-S1 intravertebral disc space with the anterior listhesis of 5 lumbar vertebra second-degree. The vertebral bodies of normal height. No prevertebral soft tissue swelling is noted. The pedicles are intact. IMPRESSION:: anterior listhesis L5 lumbar vertebra, degenerative narrowing at L5-S1 intervertebral disc space.
--- NOTE | 2018-11-07 10:36 | Diagnostic Imaging Report ---
Portable chest x-ray Time: 1319 History: Chest pain COMPARISON: 04/02/2018 Findings: Allowing for portable technique the heart size is prominent. No focal pulmonary parenchymal processes. No hilar or mediastinal abnormalities. Impression: No acute abnormalities.
--- NOTE | 2018-11-11 19:47 | Discharge Summary ---
DATE OF DISCHARGE: PRELIMINARY DIAGNOSES: 1. Chest pain, rule out acute coronary syndrome. 2. Cardiomyopathy with ejection fraction of 11%. 3. Hypertension. 4. History of intravenous drug use. 5. Positive urine drug screen for methamphetamines and cannabis. 6. Elevated troponin levels. 7. Chronic low back pain. DISCHARGE DIAGNOSES: 1. Chest pain, rule out acute coronary syndrome. 2. Cardiomyopathy with ejection fraction of 11%. 3. Hypertension. 4. History of intravenous drug use. 5. Positive urine drug screen for methamphetamines and cannabis. 6. Elevated troponin levels. 7. Chronic low back pain. BRIEF HISTORY OF PRESENT ILLNESS: This is a 52-year-old male who presents to [facility] ER for back pain. During his course of initial evaluation, the patient was also found to have elevated troponin levels with elevated BNP with a urine drug screen that was positive for methamphetamines and cannabis. The patient's initial troponin level was 0.08 with also elevated BNP of 463. The patient is also a known abuser and had a urine drug screen that was positive for methamphetamines and cannabis. He was subsequently admitted for further evaluation. HOSPITAL COURSE: The patient had serial troponin levels done at the hospital showing elevation at 0.08. Cardiac consult was ordered. The patient was placed on telemetry. During his evaluation, the patient left AMA before completion of his evaluation. The patient subsequently left the hospital against medical advice despite his current condition requiring further evaluation. [facility]# [id number]
== END 2018-11-07 10:10 | disposition left against medical advice (07) | DRG 198 ==
LOC: ER 12:34 → MSI 14:41 → TELE 15:41 → UNDODISIN 16:21
PROVIDERS: ADMIT Family Medicine; ATTEND Family Medicine
DX: I24.9 Acute ischemic heart disease, unspecified (principal); I42.9 Cardiomyopathy, unspecified; I11.0 Hypertensive heart disease with heart failure; I50.22 Chronic systolic (congestive) heart failure; M43.10 Spondylolisthesis, site unspecified; F17.210 Nicotine dependence, cigarettes, uncomplicated; J45.909 Unspecified asthma, uncomplicated; F15.90 Other stimulant use, unspecified, uncomplicated; F12.90 Cannabis use, unspecified, uncomplicated; M54.9 Dorsalgia, unspecified
CPT/HCPCS: 36415-UA; 71045-TC; 72110-TC; 80053-TC; 80061-TC; 80162-TC; 80307; 81001-TC; 83880-TC; 84443-TC; 84484-TC; 85007-TC; 85025-TC; 85610-TC; 85730-TC; 86592-TC; 93005; 94640; 94760; 96374; J1885; J2060; J7613